=== PATIENT | male | born 1975 ===

== ENCOUNTER 2019-03-13 11:30 | Emergency (ER) | payer OTHER ==
--- NOTE | 2019-03-13 12:05 | C.PDOC ---
History Of Present Illness 43-year-old male presents to the ED for evaluation of right-sided lower back pain which began two months ago. 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 Patient rates his pain 8/10 in severity. Two weeks after the injury, patient states the pain began radiating down his right leg. He reports pain above his knee, mainly in his right posterior thigh. Patient admits to numbness of the area. Patient denies LOC, dizziness, headache, nausea, vomiting, extremity tingling/weakness, direct trauma or injury. Patient has not taken any [id number] medication to relieve his pain. Patient denies seeing a specialist. Patient is also concerned about his blood pressure. Patient reports aural fullness bilaterally and dizziness was told by a friend that his symptoms may be due to his high blood pressure. Patient denies previous diagnosis of high blood pressure. Patient states he has been stressed over the past month since he has not been working. Patient denies chest pain, shortness of breath, headache, nausea and vomiting. Time Seen by Provider: 03/13/19 11:51 Chief Complaint (Nursing): Back Pain History Per: Patient History/Exam Limitations: no limitations Onset/Duration Of Symptoms: Other (two months ) Current Symptoms Are (Timing): Still Present Quality Of Discomfort: "Pain" Pain Scale Rating Of: 8 Previous Symptoms: Back Pain Past Medical History Reviewed: Historical Data, Nursing Documentation, Vital Signs - Medical History PMH: No Chronic Diseases Surgical History: No Surg Hx Family History: States: Unknown Family Hx Review Of Systems Cardiovascular: Negative for: Chest Pain Respiratory: Negative for: Shortness of Breath Gastrointestinal: Negative for: Nausea, Vomiting Musculoskeletal: Positive for: Back Pain (right-sided, lower ), Leg Pain (right, mainly to right posterior thigh ) Neurological: Negative for: Headache, Dizziness, Other (LOC) Physical Exam - Physical Exam Appears: Non-toxic, No Acute Distress Skin: Normal Color, Warm, Dry, No Ecchymosis Head: Atraumatic, Normacephalic Eye(s): bilateral: Normal Inspection Oral Mucosa: Moist Neck: Supple Chest: Symmetrical, No Deformity, No Tenderness Cardiovascular: Rhythm Regular, No Murmur Respiratory: Normal Breath Sounds, No Rales, No Rhonchi, No Wheezing Back: Vertebral Tenderness (lumbar ), Paraspinal Tenderness (right) Extremity: Normal ROM, Capillary Refill (less than 2 seconds ) Extremity: Bilateral: Normal Color And Temperature Neurological/Psych: Oriented x3, Normal Speech, Normal Cognition, Normal Motor, Normal Sensation ED Course And Treatment O2 Sat by Pulse Oximetry: 98 (on RA) Pulse Ox Interpretation: Normal - Other Rad Lumbar Spine XR X-Ray: Viewed By Me, Read By Radiologist Interpretation: Date of service: 03/13/2019. PROCEDURE: Radiographs of the Lumbar Spine. HISTORY: pain after heaving lifting. COMPARISON: No prior. TECHNIQUE: 5 views obtained. FINDINGS: BONES: Normal alignment. No listhesis. No fracture. DISC SPACES: Unremarkable. OTHER FINDINGS: None. IMPRESSION: Unremarkable radiographs of the lumbar spine. Medical Decision Making Medical Decision Making: Impression: 43 year old male with lower back pain Plan: * Naproxen PO, Motrin PO and Lidoderm patch given. * LS Spine XR ordered and reviewed with patient * On reassessment, patient is resting comfortably, showing no signs of distress and reports an improvement in her pain. Patient is ambulatory in the ED with a s teady gait and is stable for discharge. Patient is advised to f/u with PMD within 1-2 days for further evaluation. * patient was advised continue Naproxen for pain and start Antivert in the morning as needed for dizziness * follow up in clinic for further evaluation of dizziness, elevated blood pressure, and back pain * MRI may be warranted to assess for Sciatica * patient is stable for discharge Disposition Counseled Patient/Family Regarding: Studies Performed, Diagnosis, Need For Followup, Rx Given - Disposition Referrals: [facility] [Outside] Orth[facility] Clinic at [Outside] Disposition: HOME/ ROUTINE Disposition Time: 12:52 Condition: IMPROVED Additional Instructions: Continue Naproxen as needed for pain Use Antivert in the morning as needed for dizziness follow up in clinic for further evaluation of dizziness, elevated blood pressure, and back pain MRI may be warranted to assess for Sciatica Return to ED if symptoms worsen Prescriptions: Meclizine [Antivert] 12.5 mg PO TID PRN #15 tab PRN Reason: Dizziness Naproxen [Naprosyn] 500 mg PO BID #30 tablet Instructions: DASH Diet, Low Back Pain (DC), Controlling Your Blood Pressure Through Lifestyle, Dizziness, Nonvertigo, (DC) Forms: [facility] (Senegalese), Work Excuse Print Language: AZERI - Clinical Impression Clinical Impression: Low back pain, Dizziness, Elevated BP without diagnosis of hypertension - PA / EMS DRIVER / Resident Statement MD/DO has reviewed & agrees with the documentation as recorded. - Scribe Statement The provider has reviewed the documentation as recorded by the Scribe (Judi Alcantar) All medical record entries made by the Scribe were at my direction and personally dictated by me. I have reviewed the chart and agree that the record accurately reflects my personal performance of the history, physical exam, medical decision making, and the department course for this patient. I have also personally directed, reviewed, and agree with the discharge instructions and disposition.
[2019-03-13] MEDS ORDERED: Naproxen 550 mg Tab PO STA (12:09)
[2019-03-13] MEDS ORDERED: Lidocaine 5% Patch TD STA (12:10)
[2019-03-13 12:14] VITALS: TEMP 98
[2019-03-13] MEDS ORDERED: Naproxen 550 mg Tab PO ONE (12:25)
[2019-03-13] MEDS ORDERED: Lidocaine 5% Patch TD ONE (12:26)
--- NOTE | 2019-03-13 12:46 | RAD ---
Date of service: 03/13/2019 PROCEDURE: Radiographs of the Lumbar Spine. HISTORY: pain after heaving lifting COMPARISON: No prior. TECHNIQUE: 5 views obtained. FINDINGS: BONES: Normal alignment. No listhesis. No fracture. DISC SPACES: Unremarkable. OTHER FINDINGS: None. IMPRESSION: Unremarkable radiographs of the lumbar spine.
[2019-03-13 13:00] VITALS: BP 1144/94; PULSE 97; RESP 16
[2019-03-13 13:02] VITALS: O2SAT 98
== END 2019-03-13 13:08 | disposition home or self-care (01) ==
LOC: C.ER 11:30
DX: M54.5 Low back pain (principal); R42 Dizziness and giddiness; R03.0 Elevated blood-pressure reading, without diagnosis of hypertension